=== PATIENT | female | born 1945 | race Caucasian/White ===

== ENCOUNTER → 2019-07-19 | Outpatient (REF) | payer MEDICARE, OTHER, SELFPAY ==
[2019-07-19 09:50] LABS: Potassium 3.4 mmol/L (3.5-5.1)
== END | disposition home or self-care (01) ==
LOC: OLS.ACH 08:10
PROVIDERS: Visit Provider Family Medicine
DX: E87.6 Hypokalemia (principal)
CPT/HCPCS: 36415; 84132

== ENCOUNTER → 2021-07-12 10:30 | Outpatient (REF) | payer MEDICARE, OTHER, SELFPAY ==
[2021-07-12 11:12] LABS: Absolute Lymphocyte Count 0.99 X10^3/uL (0.83-4.51); Basophil# 0.04 X10^3/uL; Basophil% 0.5 % (0-1); Eosinophil# 0.16 X10^3/uL; Hematocrit 41.5 % (37-47); Lymphocyte # 0.99 X10^3/ul (0.83-4.51); Lymphocyte % 12.6 % (19-41); Mean Corp Hgb Conc 33.7 g/dL (32-36); Mean Platelet Vol. 11.1 fl (6.2-12.0); Monocyte# 0.58 X10^3/uL; Monocyte% 7.4 % (0-10); NRBC Flagged by Analyzer 0 % (0-5); Neutrophil # 6.04 X10^3/uL (2.7-7.7); Platelet Count 195 K/mm3 (150-450); RBC Distribution Width CV 13.2 % (11.6-14.6); Red Blood Count 4.51 M/mm3 (4.2-5.4); White Blood Count 7.9 K/mm3 (4.4-11.0)
[2021-07-12 11:34] LABS: AST(SGOT) 10 U/L (15-37); Alanine Aminotransfer ALT/SGPT 11 U/L (13-56); Albumin, Serum 3.6 g/dL (3.2-5.0); Alkaline Phosphatase 93 U/L (45-117); Anion Gap 7 (5-15); BUN 19 mg/dL (7-18); BUN/Creat Ratio 36.5 RATIO (10-20); Calcium,Total 10.4 mg/dL (8.5-10.1); Chloride 102 mmol/L (98-107); Creatinine, Serum 0.52 mg/dL (0.55-1.02); EST Glomerular Filtration Rate 121 mL/min (>60); Est Glom Filt Rate - Afr Amer 147 mL/min (>60); Globulin 3.7 g/dL (2.2-4.2); Glucose 92 mg/dL (74-106); Potassium 3.2 mmol/L (3.5-5.1); Protein, Total 7.3 g/dL (6.4-8.2); Sodium Level 137 mmol/L (136-145); Thyroid Stim Hormone (TSH) 0.27 uIU/mL (0.358-3.74)
[2021-07-12 12:42] LABS: PTHIN 96.3 pg/mL (18.4-80.1)
== END ==
LOC: OLS.ACH 10:30
PROVIDERS: Visit Provider Family Medicine
DX: R53.83 Other fatigue (principal)
CPT/HCPCS: 36415; 80053; 83970; 84443; 85025

== ENCOUNTER → 2021-07-20 05:00 | Outpatient (REF) | payer MEDICARE, OTHER, SELFPAY ==
[2021-07-20 08:48] LABS: Potassium 4.4 mmol/L (3.5-5.1)
== END ==
LOC: OLS.ACH 05:00
PROVIDERS: Visit Provider Family Medicine
DX: G20 Parkinson's disease (principal)
CPT/HCPCS: 36415; 84132

== ENCOUNTER 2021-07-25 15:47 | Emergency (ER) | payer MEDICARE, OTHER, SELFPAY ==
[2021-07-25 15:56] VITALS: BP 160/80; PULSE 83; RESP 16; TEMP 36.9; O2SAT 94; BMI 20.4
--- NOTE | 2021-07-25 16:47 | RAD_ITS ---
STUDY: X-RAY - LEFT ELBOW REASON FOR EXAM: Female, 76 years old. fracture [facility] the [facility] TECHNIQUE: 2 view(s) of the elbow. COMPARISON: None. FINDINGS: An acute mildly comminuted fracture is of the distal one third humeral shaft is present with displaced fragments. The elbow articulation is preserved. The radial head is incompletely visualized due to the obliquity of the patient''s arm but no obvious fracture or displaced fragment is seen in this region. The proximal ulna is unremarkable. Mild to moderate soft tissue swelling is present in the posterior aspect of the elbow and forearm and upper arm. RAD/Elbow 2 Views IMPRESSION: Comminuted fracture the distal one third humeral shaft. Electronically Signed: Rajesh Childress MD at 18:23 EDT , Service support ,
--- NOTE | 2021-07-25 16:47 | RAD_ITS ---
STUDY: X-RAY - LEFT HUMERUS REASON FOR EXAM: Female, 76 years old. fracture fall injury at the halfway TECHNIQUE: 4 view(s) of the humerus. The images are under penetrated. COMPARISON: None. FINDINGS: An acute comminuted fracture of the distal one third humeral shaft is present with mild displacement of the nature fracture fragments. An acute mildly comminuted fracture of the left humeral head neck junction is also present with displacement but is not well visualized on this study due to patient position. The soft tissues are diffusely swollen. RAD/Humerus min 2 Views IMPRESSION: 1. Acute fractures at the left humeral head neck junction and in the distal one third humeral shaft Electronically Signed: Rajesh Childress MD at 18:28 EDT , Service support ,
--- NOTE | 2021-07-25 16:48 | EX.ED.UPPERE ---
HPI History of Present Illness Chief Complaint: Upper Extremity Injury Informant: spouse/S.O. Onset/Context/Timing Onset: Days Context: Sudden Onset Timing: Continuous Quality of Pain: Dull and Aching Current Severity: Mild Maximum Severity: Moderate Associated Symptoms Associated Symptoms: Negative for Parasthesia Narrative Narrative: 76-year-old female from an area detention who is extensive past medical history of A. fib, CAD, breast cancer, non-Hodgkin's lymphoma, hypertension and Parkinson's disease. She has been a detention resident for the last month. Recently after she was moved to the detention they were concerned she may have injured her left upper extremity. Series of x-rays done between [facility] and I suspect an outpatient x-ray service. Reportedly she has a fracture in the left arm I'm not sure exactly where because I'll have the report and she was sent in here for further evaluation. History is from the patient's . Prior similar symptoms: No Recent Illness/Hospitalization: No [facility] Medical History A-fib CAD (coronary artery disease) Dysphagia History of breast cancer History of stroke Hyperlipemia Hypertension Non-Hodgkin lymphoma Orthostatic hypotension Parkinson disease Home Medications aspirin 81 mg PO DAILY 07/25/21 [History Last Taken Unknown] carbidopa-levodopa 2 tab PO QHS 07/25/21 [History Last Taken Unknown] carbidopa-levodopa 2.5 tab PO 4X/DAY 07/25/21 [History Last Taken Unknown] cholecalciferol (vitamin D3) [Vitamin D3] 50 mcg PO DAILY 07/25/21 [History Last Taken Unknown] docusate sodium [Colace] 200 mg PO BID 07/25/21 [History Last Taken Unknown] hydrocodone-acetaminophen 1 tab PO Q4H PRN 7 Days #30 tab 07/25/21 [Rx Last Taken Unknown] hydrocodone-acetaminophen [[facility]] 1 tab PO Q4H PRN 07/25/21 [History Last Taken Unknown] lactulose 20 g PO DAILY 07/25/21 [History Last Taken Unknown] magnesium oxide 400 mg PO DAILY 07/25/21 [History Last Taken Unknown] midodrine 10 mg PO Q8H PRN PRN 07/25/21 [History Last Taken Unknown] potassium chloride 10 meq PO BID 07/25/21 [History Last Taken Unknown] sennosides [Senna Lax] 17 mg PO BID 07/25/21 [History Last Taken Unknown] tramadol 50 mg PO Q6H PRN 07/25/21 [History Last Taken Unknown] Allergy/AdvReac Type Severity Reaction Status Date / Time latex Allergy Nausea/Vom/ Verified 07/25/21 16:00 Diarrhea morphine Allergy NEEDS Verified 07/25/21 16:00 FOLLOW-UP sulfamethoxazole Allergy NEEDS Verified 07/25/21 16:00 [From Bactrim] FOLLOW-UP trimethoprim [From Bactrim] Allergy NEEDS Verified 07/25/21 16:00 FOLLOW-UP Surgical History History of appendectomy History of lymph node excision History of partial hysterectomy Social History Smoking Status: Never smoker ROS ROS ED ROS Narrative Denies. Review of Systems ROS Unobtainable: Denies due to encephalopathy Constitutional Constitutional ED: Denies chills or fever(s) Eyes Eyes: Denies change in vision ENT ENT ED: Denies ear pain Cardiovascular Cardiovascular: Denies chest pain or palpitations Respiratory/Chest Respiratory/Chest: Denies cough or dyspnea Gastrointestinal Gastrointestinal: Denies abdominal pain, nausea or vomiting Genitourinary Genitourinary ED: Denies dysuria Musculoskeletal Musculoskeletal: Denies myalgias Integumentary Denies rash Neurologic Neurologic: Denies headache(s) Psychiatric Psychiatric: Denies depression Endocrine Endocrinology: Denies polyuria Hematologic/Lymphatic Hematologic/Lymphatic: Denies easy bruising Allergic/Immunologic Allergic/Immunologic ED: Denies urticaria EXAM Physical Exam Narrative Exam Narrative: Elderly female chronically ill vital signs stable afebrile. HEENT exam atraumatic. Turn to the right. Heart neck nontender. Lungs clear to auscultation. Heart regular rhythm rate about 80. Abdomen soft nontender normal bowel sounds no peritoneal signs. Chest wall nontender. Left upper extremity is deformed. Limited range of motion. Limited strength. She has bruising deformity about the elbow. Hand dizziness. She has decreased motor strength in the left hand. states that she really isn't able to use this arm very much. Right upper extremity is nontender. Lower extremity are generally weak. But no deformity nontender. Neurologically she is awake. Her eyes are open. She answers very limited questions and follows limited commands. Const Vital Signs: 07/25/21 15:56 Temperature 98.4 F Temperature Source Oral Pulse Rate 83 Respiratory Rate 16 Blood Pressure 160/80 H Blood Pressure Mean 106 Pulse Ox 94 Oxygen Delivery Method Room Air Positive well nourished and well developed; Negative for obese, cachectic, contractures or unkempt General Appearance ED: well developed and NAD; Negative for unkempt, cachectic or contractures Nutritional Appearance: Negative for cachectic or obese HEENT normocephalic; Negative for atraumatic, trauma or tenderness Eyes PERRL and EOMs intact bilaterally Neck supple General: Negative for tenderness Chest Wall inspection of chest normal and palpation of chest normal Resp normal respiratory effort and clear to auscultation bilaterally Cardio regular rate, regular rhythm, S1 normal heart sound, S2 normal heart sound and no murmurs GI non-tender, non-distended and no masses Auscultation: normoactive bowel sounds Palpation: soft; Negative for tender Extremity Extremity Narrative: Left upper extremity has bruising and swelling about the left elbow. The upper extremity is held in an awkward position. She has decreased strength in the left hand. There is no gross bony deformity. Radial pulse is intact. She has limited range of motion to the entire left upper extremity. Neuro Neuro Narrative: Awake and eyes open. Sensorium / Orientation: alert Psych mental status grossly normal Appearance: Negative for unkempt Skin Lesions: no lesions Rashes: no rashes MDM MDM MDM Narrative Medical decision making narrative: Bruising left elbow. Elderly female reportedly has a fracture of her left upper extremity most likely around the elbow that is been present for maybe a week. Seems like where she was initially worked up they could not find a fracture on the first evaluation. She had outpatient films showing some type of fracture and was sent in the ER for evaluation. I do not see any old films that have been done here through [facility]. The films to be repeated. Patient is chronically ill and has limited use of this extremity prior to this injury. I discussed with Dr. Atilio Boggs orthodontist for orthopedics. Patient be placed in a long-arm splint. And will be referred to orthopedic referral. Ramírez for pain. All this was discussed with her . Radiography Diagnostic Testing: Left humerus x-ray 2 views showed a comminuted distal third humerus fracture with displacement. No significant angulation. Left elbow x-ray showed similar findings. Left forearm was unremarkable. All read by myself and the radiologist. Procedures Upper Extremity Splints Upper Extremity Splint: Orthoglass, Long arm and Sling Splint Fabrication: Fabricated Location: Left Discharge Plan Triage Chief Complaint: Upper Extremity Injury ED Provider: Jayson Reyes Dx/Rx/DC Orders Clinical Impression: Comminuted left humeral fracture Instructions: ED Fracture, Upper Extremity Prescriptions: New hydrocodone-acetaminophen 5-325 mg tablet 1 tab PO Q4H PRN (Reason: pain) 7 Days Qty: 30 RF: 0 No Action sennosides [Senna Lax] 8.6 mg Tablet 17 mg PO BID RF: 0 carbidopa-levodopa 25-250 mg Tablet 2.5 tab PO 4X/DAY RF: 0 hydrocodone-acetaminophen [[facility]] 5-325 mg Tablet 1 tab PO Q4H PRN (Reason: Pain) RF: 0 potassium chloride 10 mEq Tablet Extended Release 10 meq PO BID RF: 0 tramadol 50 mg Tablet 50 mg PO Q6H PRN (Reason: Pain) RF: 0 docusate sodium [Colace] 100 mg Capsule 200 mg PO BID RF: 0 aspirin 81 mg Tablet 81 mg PO DAILY RF: 0 carbidopa-levodopa 25-100 mg Tablet 2 tab PO QHS RF: 0 midodrine 10 mg Tablet 10 mg PO Q8H PRN PRN (Reason: Hypotension) RF: 0 cholecalciferol (vitamin D3) [Vitamin D3] 50 mcg (2,000 unit) Capsule 50 mcg PO DAILY RF: 0 lactulose 20 gram/30 mL Solution 20 g PO DAILY RF: 0 magnesium oxide 400 mg magnesium Tablet 400 mg PO DAILY RF: 0 Primary Care Provider: Suleiman Gale Referrals: Suleiman Gale DO [Primary Care Provider] - Atilio Boggs MD [STAFF PHYSICIAN] - As soon as possible Activity Restrictions/Additional Instructions: Ice and elevate the left arm to decrease pain and swelling. [place] Edward 1 to 2 pills every 4-6 hours for pain as needed. Call and follow-up with orthopedics. Keep the splint on, dry and clean. Disposition Disposition: Home, Self Care
--- NOTE | 2021-07-25 17:05 | RAD_ITS ---
STUDY: X-RAY - LEFT RADIUS AND ULNA REASON FOR EXAM: Female, 76 years old. injury TECHNIQUE: 2 view(s) of the forearm. COMPARISON: X-ray of the left elbow on the same day. FINDINGS: Significant soft tissue swelling is seen over the dorsum of the forearm. Moderate soft tissue swelling is seen on the volar surface. There is demineralization of the radius. There is demineralization of the ulna. There is no demonstrated acute fracture. RAD/Forearm 2 Views IMPRESSION: Moderate to significant soft tissue swelling Electronically Signed: Rajesh Childress MD at 18:25 EDT , Service support ,
[2021-07-25] MEDS: HYDROcodone Bitartrate/Apap 5/325 Tablet PO (18:26)
[2021-07-25 18:27] VITALS: BP 154/86; PULSE 84; RESP 16; O2SAT 97
[2021-07-25 20:17] VITALS: BP 147/79; PULSE 81; RESP 16; O2SAT 97
--- NOTE | 2021-07-25 20:19 | ED.RN ---
NURSE TO NURSE REPORT CALLED TO DAVID, DISCHARGE INSTRUCTIONS AND FOLLOW UP CARE REVIEWED.
== END 2021-07-25 20:27 | disposition home or self-care (01) ==
PROVIDERS: Emergency Provider Emergency Medicine; PCP Family Medicine
DX: S42.352A Displaced comminuted fracture of shaft of humerus, left arm, initial encounter for closed fracture (principal); X58.XXXA Exposure to other specified factors, initial encounter; Y93.9 Activity, unspecified; Y92.129 Unspecified place in nursing home as the place of occurrence of the external cause; E78.5 Hyperlipidemia, unspecified; G20 Parkinson's disease; I10 Essential (primary) hypertension; I25.10 Atherosclerotic heart disease of native coronary artery without angina pectoris; I48.91 Unspecified atrial fibrillation; Z85.3 Personal history of malignant neoplasm of breast; Z85.72 Personal history of non-Hodgkin lymphomas; Z86.73 Personal history of transient ischemic attack (TIA), and cerebral infarction without residual deficits; Z79.82 Long term (current) use of aspirin; Z79.899 Other long term (current) drug therapy
CPT/HCPCS: 29105; 73060; 73070; 73090; 99284

== ENCOUNTER 2021-10-13 19:26 | Outpatient (REF) | payer MEDICARE, SELFPAY ==
[2021-10-13 19:29] LABS: Mucous, Urine 0 SEEN /hpf (<or=2+)
[2021-10-13 19:44] LABS: Color, Urine Yellow (Yellow); Glucose, Dipstick Normal (Normal); Ketone-Dipstick 5 mg/dl (Negative); Leukocyte Esterase-Dipstick Negative /ul (Negative); Nitrite-Dipstick Negative (Negative); Occult Blood-Urine 10 /ul (Negative); Protein-Dipstick 15 mg/dl (Negative); Specific Gravity, Urine 1.015 (1.002-1.030); Urine Bilirubin Dipstick Negative (Negative); Urine Clarity Sl. Cloudy (Clear); Urine Urobilinogen Normal (Normal); Urine pH 6.5 (5.0 - 8.0)
[2021-10-13 20:00] LABS: Bacteria 2+ /hpf (None Seen); Red Blood Cells-Urine 0-5 SEEN /hpf (0-5); Squamous Epithelial Cells - UA 0-5 SEEN /hpf (5-10); White Blood Cells 0-5 SEEN /hpf (0-5)
[2021-10-13 20:01] LABS: Amorphous Sediment 1+ URATE
== END 2021-10-13 23:59 | disposition home or self-care (01) ==
LOC: OLS.ACH 19:26
PROVIDERS: PCP Family Medicine; Visit Provider Family Medicine
DX: R41.82 Altered mental status, unspecified (principal)
CPT/HCPCS: 81001; 87077; 87086; 87088; 87186

== ENCOUNTER 2021-10-28 01:35 | Outpatient (REF) | payer MEDICARE, SELFPAY ==
[2021-10-28 07:54] LABS: Mucous, Urine 0 SEEN /hpf (<or=2+); Red Blood Cells-Urine 0 SEEN /hpf (0-5); Squamous Epithelial Cells - UA 0 SEEN /hpf (5-10)
[2021-10-28 08:33] LABS: Color, Urine Yellow (Yellow); Glucose, Dipstick Normal (Normal); Ketone-Dipstick 5 mg/dl (Negative); Leukocyte Esterase-Dipstick 25 /ul (Negative); Nitrite-Dipstick Negative (Negative); Occult Blood-Urine Negative /ul (Negative); Protein-Dipstick 15 mg/dl (Negative); Urine Bilirubin Dipstick Negative (Negative); Urine Clarity Sl. Cloudy (Clear); Urine Urobilinogen Normal (Normal)
[2021-10-28 08:47] LABS: Bacteria 2+ /hpf (None Seen); White Blood Cells 5-10 SEEN /hpf (0-5)
== END 2021-10-28 23:59 | disposition home or self-care (01) ==
LOC: OLS.ACH 01:35
PROVIDERS: PCP Family Medicine; Visit Provider Family Medicine
DX: R33.9 Retention of urine, unspecified (principal)
CPT/HCPCS: 81001; 87086; 87088

== ENCOUNTER → 2021-11-02 | Outpatient (REF) | payer MEDICARE, SELFPAY ==
[2021-11-02 08:17] LABS: Vitamin D,25 Hydroxy 45.4 ng/mL
[2021-11-02 08:19] LABS: Anion Gap 10 (5-15); BUN 23 mg/dL (7-18); BUN/Creat Ratio 37.5 RATIO (10-20); Calcium,Total 10.7 mg/dL (8.5-10.1); Chloride 100 mmol/L (98-107); Creatinine, Serum 0.61 mg/dL (0.55-1.02); EST Glomerular Filtration Rate 100 mL/min (>60); Est Glom Filt Rate - Afr Amer 121 mL/min (>60); Glucose 82 mg/dL (74-106); Magnesium 2.2 mg/dL (1.6-2.6); Phosphorus 2.8 mg/dL (2.5-4.9); Potassium 3.6 mmol/L (3.5-5.1); Sodium Level 137 mmol/L (136-145)
== END | disposition home or self-care (01) ==
LOC: OLS.ACH 05:00
PROVIDERS: PCP Family Medicine; Visit Provider Family Medicine
DX: G20 Parkinson's disease (principal); E87.6 Hypokalemia; I10 Essential (primary) hypertension; E78.5 Hyperlipidemia, unspecified; G90.9 Disorder of the autonomic nervous system, unspecified; I35.0 Nonrheumatic aortic (valve) stenosis; I25.10 Atherosclerotic heart disease of native coronary artery without angina pectoris
CPT/HCPCS: 36415; 80048; 82306; 82330; 83735; 84100

== ENCOUNTER 2021-11-10 11:07 | Outpatient (CLI) | payer MEDICARE, OTHER, SELFPAY ==
--- NOTE | 2021-11-10 11:22 | BD_ITS ---
STUDY: DUAL ENERGY X-RAY ABSORPTIOMETRY / DXA REASON FOR EXAM: Female, 76 years old. 733.00OsteoporosisBONE DENSITY REASON FOR EXAM TECHNIQUE: Bone Mineral Density (BMD) measurements of lumbar spine and bilateral hips were obtained. COMPARISON: None. FINDINGS: Lumbar Spine (L1-L4): g/cm2 (0.808) / T-score (-2.2) / Z-score (0.4) Findings are suggestive of osteopenia with a high fracture risk. Left Femur Total: g/cm2 (0.564) / T-score (-3.1) / Z-score (-1.2) Left Femoral Neck: g/cm2 (0.492) / T-score (-3.2) / Z-score (-1.0) Right Femur Total: g/cm2 (0.585) / T-score (-2.9) / Z-score (-1.0) Right Femoral Neck: g/cm2 (0.455) / T-score (-3.5) / Z-score (-1.4) BD/Dexa Bone Density Study IMPRESSION: The patient is considered osteoporotic as outlined below according to World Jason Organization (WHO) criteria with a high fracture risk. Reference Information: The T-score is the number of standard deviations above or below the standard which is normal for young adults at their peak bone mineral density. The World Health Organization (WHO) interprets the T-scores as follows: Above -1 Normal bone density Between -1 and -2.5 Osteopenia Equal to / or below -2.5 Osteoporosis As a practical clinical guideline, osteopenia may be graded as follows: Mild -1 through -1.5 Moderate -1.6 through -2.0 Severe -2.1 through -2.4 The Z-score is the number of standard deviations above or below age-matched controls. A Z-score of less than -1.5 would be considered abnormal. References: 1. NIH Osteoporosis and Related Bone Diseases www osteo.org 2. International Society for Clinical Densitometry www iscd.org 3. National Osteoporosis Foundation www nof.org Electronically Signed: Amos Valentin MD at 14:24 EST , Service support ,
== END 2021-11-10 23:59 | disposition short-term general hospital (02) ==
LOC: OPBD 11:12
PROVIDERS: PCP Family Medicine; Referring Provider Family Medicine; Visit Provider Family Medicine
DX: M81.0 Age-related osteoporosis without current pathological fracture (principal)
CPT/HCPCS: 77080

== ENCOUNTER → 2021-11-21 | Outpatient (REF) | payer MEDICARE, OTHER, SELFPAY ==
[2021-11-21 09:52] LABS: Color, Urine Yellow (Yellow); Glucose, Dipstick Normal (Normal); Ketone-Dipstick 5 mg/dl (Negative); Leukocyte Esterase-Dipstick 25 /ul (Negative); Nitrite-Dipstick Positive (Negative); Occult Blood-Urine Negative /ul (Negative); Protein-Dipstick Negative (Negative); Specific Gravity, Urine 1.025 (1.002-1.030); Urine Bilirubin Dipstick Negative (Negative); Urine Clarity Clear (Clear); Urine Urobilinogen Normal (Normal)
[2021-11-21 10:05] LABS: Anion Gap 2 (5-15); BUN 20 mg/dL (7-18); BUN/Creat Ratio 31.9 RATIO (10-20); Chloride 106 mmol/L (98-107); Creatinine, Serum 0.63 mg/dL (0.55-1.02); EST Glomerular Filtration Rate 98 mL/min (>60); Est Glom Filt Rate - Afr Amer 118 mL/min (>60); Glucose 85 mg/dL (74-106); Potassium 3.8 mmol/L (3.5-5.1); Sodium Level 139 mmol/L (136-145)
== END | disposition home or self-care (01) ==
LOC: OLS.ACH 05:00
PROVIDERS: PCP Family Medicine; Visit Provider Family Medicine
DX: G20 Parkinson's disease (principal); N39.0 Urinary tract infection, site not specified; R33.9 Retention of urine, unspecified
CPT/HCPCS: 36415; 80048; 81002; 87077; 87086; 87088; 87186

== ENCOUNTER → 2022-02-01 | Outpatient (REF) | payer MEDICARE, OTHER, SELFPAY ==
[2022-02-01 09:04] LABS: Absolute Lymphocyte Count 1.71 X10^3/uL (0.83-4.51); Absolute Neutrophil Count 4.9 X10^3/uL (2.0-7.7); Basophil# 0.06 X10^3/uL; Basophil% 0.8 % (0-1); Eosinophil# 0.38 X10^3/uL; Eosinophils% 4.9 % (0-5); Hematocrit 36.3 % (37-47); Hemoglobin 12.4 g/dL (12.0-15.0); Lymphocyte # 1.71 X10^3/ul (0.83-4.51); Lymphocyte % 22.2 % (19-41); Mean Corp Hgb Conc 34.2 g/dL (32-36); Mean Corpuscular Hgb 31.2 pg (27.0-32.0); Mean Corpuscular Volume 91.2 fL (81-99); Mean Platelet Vol. 10.5 fl (6.2-12.0); Monocyte# 0.65 X10^3/uL; Monocyte% 8.5 % (0-10); NRBC Flagged by Analyzer 0 % (0-5); Neutrophil # 4.86 X10^3/uL (2.7-7.7); Neutrophil % 63.2 % (47-70); Platelet Count 199 K/mm3 (150-450); RBC Distribution Width CV 13.4 % (11.6-14.6); Red Blood Count 3.98 M/mm3 (4.2-5.4); White Blood Count 7.7 K/mm3 (4.4-11.0)
[2022-02-01 09:20] LABS: AST(SGOT) 11 U/L (15-37); Alanine Aminotransfer ALT/SGPT 9 U/L (13-56); Albumin, Serum 3.2 g/dL (3.2-5.0); Alkaline Phosphatase 51 U/L (45-117); Anion Gap 5 (5-15); BUN 26 mg/dL (7-18); BUN/Creat Ratio 39.5 RATIO (10-20); Calcium,Total 9.7 mg/dL (8.5-10.1); Chloride 107 mmol/L (98-107); Creatinine, Serum 0.66 mg/dL (0.55-1.02); EST Glomerular Filtration Rate 92 mL/min (>60); Est Glom Filt Rate - Afr Amer 112 mL/min (>60); Globulin 3.2 g/dL (2.2-4.2); Glucose 92 mg/dL (74-106); Potassium 3.5 mmol/L (3.5-5.1); Protein, Total 6.4 g/dL (6.4-8.2); Sodium Level 139 mmol/L (136-145)
== END | disposition home or self-care (01) ==
LOC: OLS.ACH 05:00
PROVIDERS: PCP Family Medicine; Visit Provider Family Medicine
DX: R53.83 Other fatigue (principal)
CPT/HCPCS: 36415; 80053; 85025

== ENCOUNTER → 2022-03-08 | Outpatient (REF) | payer MEDICARE, OTHER, SELFPAY ==
[2022-03-08 13:15] LABS: Hematocrit 40.1 % (37-47); Hemoglobin 13.4 g/dL (12.0-15.0); Mean Corp Hgb Conc 33.4 g/dL (32-36); Mean Corpuscular Hgb 30.7 pg (27.0-32.0); Mean Corpuscular Volume 91.8 fL (81-99); Mean Platelet Vol. 10.4 fl (6.2-12.0); Platelet Count 188 K/mm3 (150-450); RBC Distribution Width CV 13.1 % (11.6-14.6); RBC Distribution Width SD 44.3 fl (35.1-43.9); Red Blood Count 4.37 M/mm3 (4.2-5.4); White Blood Count 14.9 K/mm3 (4.4-11.0)
[2022-03-08 13:29] LABS: Anion Gap 8 (5-15); BUN 27 mg/dL (7-18); BUN/Creat Ratio 37.8 RATIO (10-20); Calcium,Total 10.5 mg/dL (8.5-10.1); Chloride 106 mmol/L (98-107); Creatinine, Serum 0.72 mg/dL (0.55-1.02); EST Glomerular Filtration Rate 84 mL/min (>60); Est Glom Filt Rate - Afr Amer 102 mL/min (>60); Glucose 86 mg/dL (74-106); Potassium 4.2 mmol/L (3.5-5.1); Sodium Level 140 mmol/L (136-145)
[2022-03-09 07:48] LABS: Red Blood Cells-Urine 0 SEEN /hpf (0-5)
[2022-03-09 08:30] LABS: Color, Urine Yellow (Yellow); Glucose, Dipstick Normal (Normal); Ketone-Dipstick 5 mg/dl (Negative); Leukocyte Esterase-Dipstick 100 /ul (Negative); Nitrite-Dipstick Positive (Negative); Occult Blood-Urine 10 /ul (Negative); Protein-Dipstick 15 mg/dl (Negative); Specific Gravity, Urine 1.015 (1.002-1.030); Urine Bilirubin Dipstick Negative (Negative); Urine Clarity Cloudy (Clear); Urine Urobilinogen Normal (Normal); Urine pH 6.5 (5.0 - 8.0)
[2022-03-09 08:49] LABS: Bacteria 4+ /hpf (None Seen); Squamous Epithelial Cells - UA 5-10 SEEN /hpf (5-10); White Blood Cells 5-10 SEEN /hpf (0-5)
[2022-03-09 08:50] LABS: Mucous, Urine RARE /hpf (<or=2+)
== END | disposition home or self-care (01) ==
LOC: OLS.ACH 12:30
PROVIDERS: PCP Family Medicine; Visit Provider Family Medicine
DX: I95.1 Orthostatic hypotension (principal); R79.9 Abnormal finding of blood chemistry, unspecified; N39.0 Urinary tract infection, site not specified
CPT/HCPCS: 36415; 80048; 81001; 85027; 87086; 87088

== ENCOUNTER → 2022-04-23 08:00 | Outpatient (REF) | payer MEDICARE, OTHER, SELFPAY ==
[2022-04-23 10:39] LABS: Mucous, Urine 0 SEEN /hpf (<or=2+); Red Blood Cells-Urine 0 SEEN /hpf (0-5)
[2022-04-23 10:43] LABS: Color, Urine Yellow (Yellow); Glucose, Dipstick Normal (Normal); Ketone-Dipstick Negative (Negative); Leukocyte Esterase-Dipstick 100 /ul (Negative); Nitrite-Dipstick Negative (Negative); Occult Blood-Urine Negative /ul (Negative); Protein-Dipstick Negative (Negative); Specific Gravity, Urine 1.015 (1.002-1.030); Urine Bilirubin Dipstick Negative (Negative); Urine Clarity Cloudy (Clear); Urine Urobilinogen Normal (Normal)
[2022-04-23 10:50] LABS: Amorphous Sediment 2+; Bacteria 1+ /hpf (None Seen); Squamous Epithelial Cells - UA 0-5 SEEN /hpf (5-10); Triple Phosphate Crystals Ur 2+ /hpf (<or=1+); White Blood Cells 0-5 SEEN /hpf (0-5)
[2022-04-23 14:30] LABS: Hematocrit 33.8 % (37-47); Hemoglobin 11.6 g/dL (12.0-15.0); Mean Corp Hgb Conc 34.3 g/dL (32-36); Mean Corpuscular Hgb 31.7 pg (27.0-32.0); Mean Corpuscular Volume 92.3 fL (81-99); Mean Platelet Vol. 10.8 fl (6.2-12.0); Platelet Count 199 K/mm3 (150-450); RBC Distribution Width CV 13.5 % (11.6-14.6); Red Blood Count 3.66 M/mm3 (4.2-5.4); White Blood Count 9.2 K/mm3 (4.4-11.0)
[2022-04-23 14:37] LABS: Anion Gap 5 (5-15); BUN 18 mg/dL (7-18); Calcium,Total 10.3 mg/dL (8.5-10.1); Chloride 107 mmol/L (98-107); Creatinine, Serum 0.67 mg/dL (0.55-1.02); EST Glomerular Filtration Rate 91 mL/min (>60); Est Glom Filt Rate - Afr Amer 110 mL/min (>60); Glucose 120 mg/dL (74-106); Potassium 4.1 mmol/L (3.5-5.1); Sodium Level 137 mmol/L (136-145)
== END ==
LOC: OLS.ACH 08:00
PROVIDERS: PCP Family Medicine; Visit Provider Family Medicine
DX: R53.83 Other fatigue (principal); R62.7 Adult failure to thrive; R33.9 Retention of urine, unspecified
CPT/HCPCS: 36415; 80048; 81001; 85027

== ENCOUNTER → 2022-05-08 | Outpatient (REF) | payer MEDICARE, OTHER, SELFPAY ==
[2022-05-08 08:43] LABS: Absolute Lymphocyte Count 1.36 X10^3/uL (0.83-4.51); Basophil# 0.04 X10^3/uL; Basophil% 0.5 % (0-1); Eosinophil# 0.27 X10^3/uL; Eosinophils% 3.2 % (0-5); Hematocrit 30.9 % (37-47); Hemoglobin 10.2 g/dL (12.0-15.0); Lymphocyte # 1.36 X10^3/ul (0.83-4.51); Lymphocyte % 16.2 % (19-41); Mean Corpuscular Hgb 31.1 pg (27.0-32.0); Mean Corpuscular Volume 94.2 fL (81-99); Mean Platelet Vol. 10.6 fl (6.2-12.0); Monocyte% 8.3 % (0-10); NRBC Flagged by Analyzer 0 % (0-5); Neutrophil # 6.01 X10^3/uL (2.7-7.7); Neutrophil % 71.3 % (47-70); Platelet Count 266 K/mm3 (150-450); RBC Distribution Width SD 44.7 fl (35.1-43.9); Red Blood Count 3.28 M/mm3 (4.2-5.4); White Blood Count 8.4 K/mm3 (4.4-11.0)
== END ==
LOC: OLS.ACH 05:00
PROVIDERS: PCP Family Medicine; Visit Provider Family Medicine
DX: G20 Parkinson's disease (principal)
CPT/HCPCS: 36415; 85025

== ENCOUNTER → 2022-05-19 | Outpatient (REF) | payer MEDICARE, OTHER, SELFPAY ==
[2022-05-19 08:20] LABS: Absolute Lymphocyte Count 1.41 X10^3/uL (0.83-4.51); Absolute Neutrophil Count 6.3 X10^3/uL (2.0-7.7); Basophil# 0.04 X10^3/uL; Basophil% 0.4 % (0-1); Eosinophil# 0.34 X10^3/uL; Eosinophils% 3.8 % (0-5); Hematocrit 34.6 % (37-47); Hemoglobin 11.5 g/dL (12.0-15.0); Lymphocyte # 1.41 X10^3/ul (0.83-4.51); Lymphocyte % 15.8 % (19-41); Mean Corp Hgb Conc 33.2 g/dL (32-36); Mean Corpuscular Hgb 31.2 pg (27.0-32.0); Mean Corpuscular Volume 93.8 fL (81-99); Mean Platelet Vol. 10.6 fl (6.2-12.0); Monocyte# 0.82 X10^3/uL; Monocyte% 9.2 % (0-10); NRBC Flagged by Analyzer 0 % (0-5); Neutrophil # 6.28 X10^3/uL (2.7-7.7); Neutrophil % 70.6 % (47-70); Platelet Count 230 K/mm3 (150-450); RBC Distribution Width CV 13.3 % (11.6-14.6); RBC Distribution Width SD 45.1 fl (35.1-43.9); Red Blood Count 3.69 M/mm3 (4.2-5.4); White Blood Count 8.9 K/mm3 (4.4-11.0)
[2022-05-19 08:56] LABS: Vitamin B12 540 pg/mL (211-911)
== END ==
LOC: OLS.ACH 05:00
PROVIDERS: PCP Family Medicine
DX: I10 Essential (primary) hypertension (principal); I73.9 Peripheral vascular disease, unspecified; G70.9 Myoneural disorder, unspecified; I65.29 Occlusion and stenosis of unspecified carotid artery
CPT/HCPCS: 36415; 82607; 85025

== ENCOUNTER → 2022-06-07 | Outpatient (REF) | payer MEDICARE, SELFPAY ==
[2022-06-08 01:26] LABS: Red Blood Cells-Urine 0 SEEN /hpf (0-5); Squamous Epithelial Cells - UA 0 SEEN /hpf (5-10)
[2022-06-08 01:29] LABS: Color, Urine Brown (Yellow); Glucose, Dipstick Normal (Normal); Ketone-Dipstick 5 mg/dl (Negative); Leukocyte Esterase-Dipstick 25 /ul (Negative); Nitrite-Dipstick Negative (Negative); Occult Blood-Urine Negative /ul (Negative); Protein-Dipstick 30 mg/dl (Negative); Urine Bilirubin Dipstick Negative (Negative); Urine Clarity Cloudy (Clear); Urine Urobilinogen Normal (Normal)
[2022-06-08 01:40] LABS: Bacteria 3+ /hpf (None Seen); Mucous, Urine 1+ /hpf (<or=2+); Triple Phosphate Crystals Ur 2+ /hpf (<or=1+); White Blood Cells 0-5 SEEN /hpf (0-5)
== END ==
LOC: OLS.ACH 15:00
PROVIDERS: Visit Provider Family Medicine
DX: R41.82 Altered mental status, unspecified (principal)
CPT/HCPCS: 81001; 87077; 87086; 87088

== ENCOUNTER → 2022-06-13 | Outpatient (REF) | payer MEDICARE, OTHER, SELFPAY ==
[2022-06-13 09:54] LABS: Hematocrit 33.8 % (37-47); Hemoglobin 10.8 g/dL (12.0-15.0); Mean Corpuscular Volume 90.6 fL (81-99); Platelet Count 289 K/mm3 (150-450); RBC Distribution Width CV 13.3 % (11.6-14.6); RBC Distribution Width SD 43.7 fl (35.1-43.9); Red Blood Count 3.73 M/mm3 (4.2-5.4); White Blood Count 8.5 K/mm3 (4.4-11.0)
== END ==
LOC: OLS.ACH 05:00
PROVIDERS: Visit Provider Family Medicine
DX: M62.81 Muscle weakness (generalized) (principal)
CPT/HCPCS: 36415; 85027

== ENCOUNTER → 2022-07-04 | Outpatient (REF) | payer MEDICARE, OTHER, SELFPAY ==
[2022-07-04 14:09] LABS: BNP,B-Type NATRIURETIC PEPTIDE 72.8 pg/mL (0-100)
== END ==
LOC: OLS.ACH 12:37
PROVIDERS: Visit Provider Family Medicine
DX: R05.9 Cough, unspecified (principal); R06.02 Shortness of breath
CPT/HCPCS: 36415; 83880

== ENCOUNTER → 2022-07-12 | Outpatient (REF) | payer MEDICARE, OTHER, SELFPAY ==
[2022-07-12 08:34] LABS: Anion Gap 6 (5-15); BUN 22 mg/dL (7-18); BUN/Creat Ratio 44.6 RATIO (10-20); Calcium,Total 9.8 mg/dL (8.5-10.1); Chloride 106 mmol/L (98-107); Creatinine, Serum 0.49 mg/dL (0.55-1.02); EST Glomerular Filtration Rate 129 mL/min (>60); Est Glom Filt Rate - Afr Amer 156 mL/min (>60); Glucose 80 mg/dL (74-106); Potassium 3.8 mmol/L (3.5-5.1); Sodium Level 138 mmol/L (136-145)
== END ==
LOC: OLS.ACH 04:00
PROVIDERS: Referring Provider Family Medicine; Visit Provider Family Medicine
DX: I95.1 Orthostatic hypotension (principal)
CPT/HCPCS: 36415; 80048

== ENCOUNTER → 2022-08-03 | Outpatient (REF) | payer MEDICARE, OTHER, SELFPAY ==
[2022-08-03 09:01] LABS: Mucous, Urine 0 SEEN /hpf (<or=2+); Squamous Epithelial Cells - UA 0 SEEN /hpf (5-10)
[2022-08-03 10:04] LABS: Color, Urine Yellow (Yellow); Glucose, Dipstick Normal (Normal); Ketone-Dipstick 15 mg/dl (Negative); Leukocyte Esterase-Dipstick 100 /ul (Negative); Nitrite-Dipstick Positive (Negative); Occult Blood-Urine 10 /ul (Negative); Protein-Dipstick 30 mg/dl (Negative); Specific Gravity, Urine 1.015 (1.002-1.030); Urine Bilirubin Dipstick Negative (Negative); Urine Clarity Sl. Cloudy (Clear); Urine Urobilinogen Normal (Normal); Urine pH 6.5 (5.0 - 8.0)
[2022-08-03 10:14] LABS: Hematocrit 35.5 % (37-47); Hemoglobin 10.9 g/dL (12.0-15.0); Mean Corp Hgb Conc 30.7 g/dL (32-36); Mean Corpuscular Hgb 27.9 pg (27.0-32.0); Mean Platelet Vol. 11.5 fl (6.2-12.0); Platelet Count 279 K/mm3 (150-450); RBC Distribution Width CV 15.3 % (11.6-14.6); RBC Distribution Width SD 50.7 fl (35.1-43.9); White Blood Count 7.7 K/mm3 (4.4-11.0)
[2022-08-03 10:26] LABS: Bacteria 3+ /hpf (None Seen); Red Blood Cells-Urine 0-5 SEEN /hpf (0-5); White Blood Cells 10-25 SEEN /hpf (0-5)
[2022-08-03 10:36] LABS: BUN 24 mg/dL (7-18); Creatinine, Serum 0.48 mg/dL (0.55-1.02); Glucose 81 mg/dL (74-106)
[2022-08-03 10:37] LABS: Anion Gap 8 (5-15); BUN/Creat Ratio 50.4 RATIO (10-20); Calcium,Total 9.8 mg/dL (8.5-10.1); Chloride 107 mmol/L (98-107); EST Glomerular Filtration Rate 134 mL/min (>60); Est Glom Filt Rate - Afr Amer 162 mL/min (>60); Potassium 3.9 mmol/L (3.5-5.1); Sodium Level 139 mmol/L (136-145)
== END ==
LOC: OLS.ACH 05:00
PROVIDERS: Visit Provider Family Medicine
DX: R33.9 Retention of urine, unspecified (principal); R53.83 Other fatigue; R62.7 Adult failure to thrive
CPT/HCPCS: 36415; 80048; 81001; 85027; 87077; 87086; 87088; 87186

== ENCOUNTER → 2022-10-27 | Outpatient (REF) | payer MEDICARE, OTHER, SELFPAY ==
[2022-10-27 08:43] LABS: Anion Gap 5 (5-15); BUN 21 mg/dL (7-18); BUN/Creat Ratio 49.9 RATIO (10-20); Chloride 107 mmol/L (98-107); Creatinine, Serum 0.42 mg/dL (0.55-1.02); EST Glomerular Filtration Rate 155 mL/min (>60); Est Glom Filt Rate - Afr Amer 187 mL/min (>60); Glucose 92 mg/dL (74-106); Potassium 4.1 mmol/L (3.5-5.1); Sodium Level 140 mmol/L (136-145)
[2022-10-27 09:13] LABS: PTHIN 99.6 pg/mL (18.4-80.1)
[2022-10-27 09:17] LABS: Vitamin D,25 Hydroxy 49.1 ng/mL
== END ==
LOC: OLS.ACH 05:00
PROVIDERS: Visit Provider Internal Medicine
DX: G20 Parkinson's disease (principal); E21.3 Hyperparathyroidism, unspecified
CPT/HCPCS: 36415; 80048; 82306; 83970